=== PATIENT | female | born 1940 | race Caucasian/White ===

== ENCOUNTER 2016-12-26 09:00 | Observation (INO) ==
[2016-12-26 10:23] LABS: Basophils # 0.1 K/mcL (0.0-0.2); Basophils % 0.6 %; Eosinophils # 0.1 K/mcL (0.0-0.6); Eosinophils % 0.6 %; Hematocrit 40.4 % (35.3-44.9); Hemoglobin 13.5 g/dL (11.5-15.4); Immature Granulocytes % 0.3 % (0-4); Lymphocytes # 2.2 K/mcL (0.6-4.6); Lymphocytes % 15.2 %; Mean Corpuscular HGB Conc 33.4 g/dL (31.6-35.5); Mean Corpuscular Hemoglobin 30.3 pg (28.0-33.3); Mean Corpuscular Volume 90.6 fL (83.0-100.0); Mean Platelet Volume 9.5 fL (9.4-12.4); Monocytes # 0.8 K/mcL (0.0-1.3); Monocytes % 5.7 %; Neutrophils # 11.2 K/mcL (1.6-8.9); Platelet Count 220 K/mcL (140-400); Red Blood Count 4.46 M/mcL (3.82-4.97); Red Cell Distribution Width 12.3 % (11.5-14.5); Segmented Neutrophils % 77.6 %
[2016-12-26 10:34] LABS: BUN/Creatinine Ratio 21 (6-26); Blood Urea Nitrogen 22 mg/dL (7-20); Calcium 9.8 mg/dL (8.6-10.8); Carbon Dioxide 28 mEq/L (19-29); Chloride 102 mEq/L (98-109); Glucose 164 mg/dL (70-99); Osmolality,Calculated 297 (280-300); Potassium 3.7 mEq/L (3.5-4.5); Sodium 140 mEq/L (136-145); eGFR For African Americans > 60 (> 60); eGFR For Non-African Americans 52 (> 60)
--- NOTE | 2016-12-26 10:48 | Emergency Department Note ---
Disposition Clinical Impression: GI bleed Qualifiers: GI bleed type/associated pathology: melena Qualified Code(s): K92.1 - Melena Disposition: Admitted As Inpatient GI Bleed HPI - General Chief complaint: ED GI Bleed Stated complaint: Rectal Bleeding Time Seen by Provider: 12/26/16 09:10 Source: patient Limitations: no limitations Nursing Notes Reviewed: Yes Vital Signs Reviewed: Yes - History of Present Illness HPI Narrative: Presents with complaint of bright red rectal bleeding small quantity and this occurred intermittently this morning and started at home. Occurred a total of 3 times and does not have any dizziness. Has had some intermittent abdominal pain since last night but none at this time. This was nonlocalized. Last colonoscopy 9 years ago did have a polyp removed. She did have dark black diarrhea intermittently through the night and then the bright red blood started this morning. She denies any bruising of the skin, bleeding of the gums, blood in the urine. No dysuria or urinary frequency, vaginal bleeding or discharge. I did review the previous record. Social history: No smoking or alcohol. - Related Data Home Medications Medication Instructions Recorded Confirmed Acetaminophen [Tylenol] 1,000 mg PO Q6HR PRN 12/26/16 12/26/16 Aspirin 81 mg PO DAILY 12/26/16 12/26/16 Latanoprost [Xalatan] 1 drop BOTH EYES HS 12/26/16 12/26/16 Lisinopril/Hydrochlorothiazide 1 tab PO DAILY 12/26/16 12/26/16 [Zestoretic 10-12.5 mg Tablet] Nabumetone 750 mg PO BID 12/26/16 12/26/16 Simvastatin [Zocor] 40 mg PO HS 12/26/16 12/26/16 metFORMIN [Glucophage] 500 mg PO BID 12/26/16 12/26/16 Allergies Allergy/AdvReac Type Severity Reaction Status Date / Time ampicillin AdvReac Diarrhea Verified 12/26/16 09:04 Review of Systems: Constitutional: No fever Vision: No blurred vision ENT: No rhinorrhea Respiratory: No cough Allergic: No allergies : No blood in urine GI: + blood in stool Hematologic: No bruising Dermatologic: No skin rash Musculoskeletal: No pain in the extremities Neuro: No numbness of the extremities Past Medical History - Past Medical History Medical history: Reports: diabetes, hyperlipidemia, hypertension Psychiatric history: Reports: no psych history DIRECTOR RADIO history: Reports: bilateral tubal ligation - Social History Smoking Status: Never smoker Smokeless Tobacco Status: No Alcohol use: Reports: none Drug use: Reports: none Physical Exam CONSTITUTIONAL: Alert and oriented X3, well-nourished, well appearing, in no apparent distress HEAD: Normocephalic; atraumatic. EYES: PERRL, no scleral icterus. NOSE: The nose is normal in appearance without rhinorrhea RESP: Normal chest excursion with respiration; breath sounds clear and equal bilaterally; no wheezes, rhonchi, or rales CARD: Regular rhythm, without murmurs, rub or gallop ABD: Non-distended; non-tender, soft,without rigidity, rebound or guarding SKIN: Normal for age and race; warm and dry; no apparent lesions - General Limitations: no limitations General appearance: alert, in no apparent distress Course Vital Signs Temperature 97.4 F L 12/26/16 09:04 Pulse Rate 123 12/26/16 09:04 Respiratory Rate 17 12/26/16 09:04 Blood Pressure 133/72 12/26/16 09:04 O2 Sat by Pulse Oximetry 95 12/26/16 09:04 Temperature 98.6 F 12/26/16 15:21 Pulse Rate 95 12/26/16 15:21 Respiratory Rate 20 12/26/16 15:21 Blood Pressure 135/96 12/26/16 15:21 O2 Sat by Pulse Oximetry 94 12/26/16 15:21 Oxygen Delivery Oxygen Delivery Room Air GI Bleed - MDM Narrative Medical decision making narrative: I did review the patient's initial labs showing a normal hemoglobin. Additional labs are pending. Rectal exam and fecal Hemoccults will be performed. 1048 I did review the patient's labs and the patient is not anemic. I did speak with her and her friend again. The patient was not comfortable going home. With the episodes of 3 times of bright red rectal bleeding, bright red blood on the glove with a rectal exam, given her age the patient will be admitted to the hospital. I did speak with Dr. Levi who accepted the patient for admission. I also spoke with Dr. Le regarding colonoscopy as Dr. Zarate [place] of the country and he accepted the patient in consultation. Hemodynamically the patient is stable at this time. 1241 - Medical Records Medical records reviewed: Yes I reviewed the patient's medical records. - Lab Data Lab results reviewed: Yes I reviewed the patient's lab results. Result diagrams: 12/26/16 10:16 12/26/16 10:16 Lab Results 12/26/16 12/26/16 12/26/16 Range/Units 10:16 10:16 10:16 WBC 14.4 H (4.3-11.1) K/mcL RBC 4.46 (3.82-4.97) M/mcL Hgb 13.5 (11.5-15.4) g/dL Hct 40.4 (35.3-44.9) % MCV 90.6 (83.0-100.0) fL MCH 30.3 (28.0-33.3) pg MCHC 33.4 (31.6-35.5) g/dL RDW 12.3 (11.5-14.5) % Plt Count 220 (140-400) K/mcL MPV 9.5 (9.4-12.4) fL Immature Gran % 0.3 (0-4) % Seg Neutrophils % 77.6 % Lymphocytes % 15.2 % Monocytes % 5.7 % Eosinophils % 0.6 % Basophils % 0.6 % Neutrophils # 11.2 H (1.6-8.9) K/mcL Lymphocytes # 2.2 (0.6-4.6) K/mcL Monocytes # 0.8 (0.0-1.3) K/mcL Eosinophils # 0.1 (0.0-0.6) K/mcL Basophils # 0.1 (0.0-0.2) K/mcL PT (9.4-12.1) Seconds INR Sodium 140 (136-145) mEq/L Potassium 3.7 (3.5-4.5) mEq/L Chloride 102 (98-109) mEq/L Carbon Dioxide 28 (19-29) mEq/L BUN 22 H (7-20) mg/dL Creatinine 1.03 (0.57-1.11) mg/dL Est GFR ( Amer) > 60 (> 60) Est GFR (Non-Af Amer) 52 L (> 60) BUN/Creatinine Ratio 21 (6-26) Glucose 164 H (70-99) mg/dL Calculated Osmolality 297 (280-300) Calcium 9.8 (8.6-10.8) mg/dL Magnesium 1.6 (1.6-2.6) mg/dL Stool Occult Blood (Negative) Blood Type O POSITIVE Antibody Screen NEGATIVE 12/26/16 12/26/16 Range/Units 10:16 11:01 WBC (4.3-11.1) K/mcL RBC (3.82-4.97) M/mcL Hgb (11.5-15.4) g/dL Hct (35.3-44.9) % MCV (83.0-100.0) fL MCH (28.0-33.3) pg MCHC (31.6-35.5) g/dL RDW (11.5-14.5) % Plt Count (140-400) K/mcL MPV (9.4-12.4) fL Immature Gran % (0-4) % Seg Neutrophils % % Lymphocytes % % Monocytes % % Eosinophils % % Basophils % % Neutrophils # (1.6-8.9) K/mcL Lymphocytes # (0.6-4.6) K/mcL Monocytes # (0.0-1.3) K/mcL Eosinophils # (0.0-0.6) K/mcL Basophils # (0.0-0.2) K/mcL PT 12.5 H (9.4-12.1) Seconds INR 1.2 Sodium (136-145) mEq/L Potassium (3.5-4.5) mEq/L Chloride (98-109) mEq/L Carbon Dioxide (19-29) mEq/L BUN (7-20) mg/dL Creatinine (0.57-1.11) mg/dL Est GFR ( Amer) (> 60) Est GFR (Non-Af Amer) (> 60) BUN/Creatinine Ratio (6-26) Glucose (70-99) mg/dL Calculated Osmolality (280-300) Calcium (8.6-10.8) mg/dL Magnesium (1.6-2.6) mg/dL Stool Occult Blood Positive A (Negative) Blood Type Antibody Screen
[2016-12-26] MEDS ORDERED: *HR* Morphine 2 MG/ML SYRINGE IVP PRN (13:55)
[2016-12-26] MEDS ORDERED: Ondansetron 4 MG/2 ML VIAL IVP PRN (13:55)
[2016-12-26] MEDS ORDERED: Naloxone 0.4 MG/ML INJ IVP PRN (13:55)
[2016-12-26 14:18] LABS: Magnesium 1.6 mg/dL (1.6-2.6)
[2016-12-26 14:26] LABS: INR 1.2; Prothrombin Time 12.5 Seconds (9.4-12.1)
[2016-12-26] MEDS: 0.9 % Sodium Chloride 1,000 ML IVC SCH (14:37)
[2016-12-26] MEDS: Pantoprazole 40 MG VIAL IVP SCH (14:37)
--- NOTE | 2016-12-26 15:58 | Internal Med History&Physical ---
Date of Encounter: 12/26/16 Time of Encounter: 15:15 Assessment and Plan (1) Bright red blood per rectum Current visit: Yes Status: Acute Acute lower GI bleed, with recent melena IV Protonix, IV fluids Clear liquid diet, FOBT positive Gen. surgery consult - discussed with Dr. Coronel - colonoscopy in a.m. Hold aspirin Empiric IV Flagyl for diarrhea C. difficile pending (2) Hypertension Current visit: Yes Status: Chronic essential hypertension, controlled, continue home meds, monitor Qualifiers: Hypertension type: essential hypertension Qualified Code(s): I10 - Essential (primary) hypertension (3) Type 2 diabetes mellitus Current visit: Yes Status: Chronic Type 2 diabetes, [id number], hyperglycemia Insulin sliding scale, glucose checks Qualifiers: Diabetes mellitus complication status: without complication Diabetes mellitus custodial insulin use: without telephone appointment clerk use Qualified Code(s): E11.9 - Type 2 diabetes mellitus without complications (4) Hyperlipidemia Current visit: Yes Status: Chronic Continue statin Qualifiers: Hyperlipidemia type: unspecified Qualified Code(s): E78.5 - Hyperlipidemia , unspecified (5) DVT prophylaxis Current visit: Yes Status: Acute Continue SCDs Internal Medicine - H&P: HPI Chief complaint: Rectal bleeding Admitted From: Emergency Dept History of present illness: Ms. Kirkland is a 76 year old female with a past medical history of diabetes, hyperlipidemia, glaucoma and hypertension. She presents to the ED with complaints of bright red blood per rectum. Patient states she has had dark stool over the past month, and symptoms of gradually worsened. She states she has had intermittent diarrhea as well for the past month. Diarrhea has also been gradually worsening. She noticed bright red blood only this morning, she had a bowel movement. Patient states she had a colonoscopy about 9 years ago and had 1 polyp resected. Patient states she noticed bright red blood glucose 3 times this morning. Patient denies chest pain, denies shortness of breath, denies headache or dizziness. Denies abdominal pain or vomiting or fever. Patient denies any other obvious source of bleeding. No aggravating or alleviating factors. No other associated symptoms. On examination patient is awake and alert. Not in any distress. Able to provide history. Family members are at bedside. Initial evaluation in the ED shows the patient's H&H is stable, but she has a slightly elevated white count. No fever, her FOBT is positive. Hemodynamically stable. Patient is being admitted for lower GI bleed , will need further evaluation. I have discussed with general surgeon Dr. Coronel, he will evaluate the patient and will probably do a colonoscopy. Patient and her family members have been explained about her condition and plan of care. They understood and agreed. No unanswered questions. CODE STATUS full code. Past Med Surg Social Fam HX - Past Medical History Medical history: diabetes, glaucoma, hyperlipidemia, hypertension Psychiatric history: no psych history - Past Surgical History Surgical History: other (Surgery over neck, ear surgery and tubal ligation) - Social History Smoking Status: Never smoker Smokeless Tobacco Status: No Alcohol use: none Drug use: none Internal Medicine - H&P: Meds Acetaminophen [Tylenol] 1,000 mg PO Q6HR PRN 12/26/16 [History] Aspirin 81 mg PO DAILY 12/26/16 [History] Latanoprost [Xalatan] 1 drop BOTH EYES HS 12/26/16 [History] Lisinopril/Hydrochlorothiazide [Zestoretic 10-12.5 mg Tablet] 1 tab PO DAILY 12/07 [History] Nabumetone 750 mg PO BID 12/26/16 [History] Simvastatin [Zocor] 40 mg PO HS 12/26/16 [History] metFORMIN [Glucophage] 500 mg PO BID 12/26/16 [History] Allergies ampicillin Adverse Reaction (Verified 12/26/16 09:04) Diarrhea All Systems PM: A 10-system review of systems was performed and is negative for pertinent findings except as documented above in the HPI. - Constitutional Constitutional: as per HPI, no fatigue, no fever(s), no weakness - EENT Eyes: no blurry vision - Cardiovascular Cardiovascular ROS IM: no chest pain, no diaphoresis, no dyspnea, no dyspnea on exertion, no orthopnea, no syncope - Respiratory Respiratory: no cough, no dyspnea, no dyspnea on exertion, no wheezing, no chest congestion - Gastrointestinal Gastrointestinal: diarrhea, hematochezia, melena, no abdominal pain, no bloating , no constipation, no cramping, no nausea, no vomiting - Genitourinary Genitourinary: no dysuria - Musculoskeletal Musculoskeletal ROS IM: no arthralgias - Neurological Neurological ROS: no abnormal gait, no abnormal speech, no dizziness, no loss of vision, no numbness, no tingling - Constitutional Vitals: Temp Pulse Resp BP Pulse Ox 98.6 F 95 20 135/96 94 12/26/16 15:21 12/26/16 15:21 12/26/16 15:21 12/26/16 15:21 12/26/16 15:21 General appearance: Present: A&O X 3, pleasant, no acute distress, answers questions appropriately - Head Head exam: Present: atraumatic - Eye Eye exam: Absent: scleral icterus - ENT ENT exam: Present: mucous membranes moist - Neck Neck exam general surgery: Present: supple - Respiratory Respiratory exam: Present: CTAB. Absent: rhonchi, wheezes, tachypnea - Cardiovascular Cardiovascular exam: Present: RRR, +S1, +S2 - GI/Abdominal GI/Abdominal exam: Present: soft. Absent: distended, firm, guarding, rebound, rigid, tenderness - Extremities Exam Extremities exam: Present: radial pulses palpable and symetrical. Absent: cyanotic, pedal edema - Neurological Exam Neurological exam: Present: alert, oriented X3, no focal deficits Internal Med - H&P Results - Labs CBC & Chem 7: 12/26/16 10:16 12/26/16 10:16
[2016-12-26] MEDS: MetroNIDAZOLE 500 MG/100 ML 500 MG/100 ML BAG IVPB SCH (18:38)
--- NOTE | 2016-12-26 18:54 | General Surgery Consult Note ---
Date of Encounter: 12/26/16 Time of Encounter: 18:39 History of Present Illness Reason for consult: abdominal pain (diarrhea and new onset rectal bleeding) Requesting physician: Josse Godinez History of present illness: 76-year-old female admitted after presenting to [facility] ED with new onset bright red rectal bleeding. Several episodes occurred at home caring considerable concern and fear. The patient presented to [facility] in no acute distress hemodynamically stable; hemoglobin on presentation 13.5 with hematocrit 40.4. Patient describes diarrhea for the past month with approximately 3 pound weight loss. There was no detected blood per rectum until this morning. She denies any fevers, chills , nausea, vomiting, or rectal pain. During this encounter with the patient and patient incidentally mentioned melena intermittently over the past month. Past medical history: Diabetes, hyperlipidemia, hypertension Surgical history: Tubal, removal of a mass or growth from the thyroid; reconstruction of the right tympanic membrane; colonoscopy was completed 9 years ago Allergies: Ampicillin Medications: Lisinopril hydrochlorothiazide 10/12.5 mg 1 by mouth daily Metformin 500 mg 1 by mouth twice a day Simvastatin 40 mg by mouth daily at bedtime Tylenol 500 mg 2 tabs every 6 hours as needed Aspirin 81 mg 1 by mouth daily Nabumetone 750 mg by mouth twice a day (not listed by patient) latanoprost ophthalmic 0.005% one drop both eyes daily at bedtime Social history: Patient has never smoked; she does not consume alcohol or use illicit drugs Physical examination: Pleasant, age-appropriate female resting comfortably in her hospital bed. She is in no acute distress. The patient has been afebrile, 98.6; pulse 95, respirations 1620; blood pressure 135/96 but earlier today 115/70. SPO2 on room air 94% Skin: Warm without obvious jaundice Lungs: Clear, no appreciable wheezes or rales. No abdominal pain with deep inspiration Cardiac: Regular rate, no appreciable murmurs Abdomen: Soft, nontender; no detected intra-abdominal masses, hepatosplenomegaly or fullness. Active bowel sounds. Rectal: Deferred to time of colonoscopy Extremities, no obvious clubbing, cyanosis, or edema Laboratories: Obtained on presentation to the emergency department - white count 14.4; hemoglobin 13.5, hematocrit 40.4; platelet count 220,000 Differential notable for neutrophils 11.2%. PT 12.5, INR 1.2 Electrolytes within normal limits, BUN 22, creatinine 1.03; estimated GFR 52 Impression: 76-year-old female admitted after presenting to [facility] ED with new onset bright red rectal bleeding. Surgical consultation placed for colonoscopy. This will be arranged in the a.m. The procedure has been discussed in detail. Risks including hemorrhage, infection, cramping abdominal pain, bloating, and perforation. A mechanical bowel prep was also discussed in detail. Past Med Surg Social Fam HX - Past Medical History Medical history: diabetes, glaucoma, hyperlipidemia, hypertension Psychiatric history: no psych history - Past Surgical History Surgical History: other (Surgery over neck, ear surgery and tubal ligation) - Social History Smoking Status: Never smoker Smokeless Tobacco Status: No Alcohol use: none Drug use: none Medications and Allergies Acetaminophen [Tylenol] 1,000 mg PO Q6HR PRN 12/26/16 [History] Aspirin 81 mg PO DAILY 12/26/16 [History] Latanoprost [Xalatan] 1 drop BOTH EYES HS 12/26/16 [History] Lisinopril/Hydrochlorothiazide [Zestoretic 10-12.5 mg Tablet] 1 tab PO DAILY 12/07 [History] Nabumetone 750 mg PO BID 12/26/16 [History] Simvastatin [Zocor] 40 mg PO HS 12/26/16 [History] metFORMIN [Glucophage] 500 mg PO BID 12/26/16 [History] Allergies ampicillin Adverse Reaction (Verified 12/26/16 09:04) Diarrhea Review of Systems All systems PM: A 10-system review of systems was performed and is negative for pertinent findings except as documented above in the HPI. General Surgery Exam Initial Vital Signs Temp Pulse Resp BP Pulse Ox 97.4 F L 123 17 133/72 95 12/26/16 09:04 12/26/16 09:04 12/26/16 09:04 12/26/16 09:04 12/26/16 09:04 Exam Initial Vital Signs Temp Pulse Resp BP Pulse Ox 97.4 F L 123 17 133/72 95 12/26/16 09:04 12/26/16 09:04 12/26/16 09:04 12/26/16 09:04 12/26/16 09:04 Results - Labs 12/26/16 10:16 12/26/16 10:16 Abnormal lab results WBC 14.4 K/mcL (4.3-11.1) H 12/26/16 10:16 Neutrophils # 11.2 K/mcL (1.6-8.9) H 12/26/16 10:16 PT 12.5 Seconds (9.4-12.1) H 12/26/16 10:16 BUN 22 mg/dL (7-20) H 12/26/16 10:16 Est GFR (Non-Af Amer) 52 (> 60) L 12/26/16 10:16 Glucose 164 mg/dL (70-99) H 12/26/16 10:16 POC Glucose 122 (58-89) H 12/26/16 16:40 Stool Occult Blood Positive (Negative) A 12/26/16 11:01 All other labs normal. Consult Discharge Plan - Plan Referrals: Sage Albert DO [Primary Care Provider] -
[2016-12-26 20:12] LABS: Bilirubin,Urine Negative (Negative); Blood,Urine Moderate (Negative); Clarity,Urine Clear (Clear); Color,Urine Yellow (Yellow); Glucose,Urine (UA) Normal (Normal); Ketones,Urine Negative (Negative); Leukocyte Esterase,Urine Moderate (Negative); Nitrite,Urine Negative (Negative); PH,Urine 5.5 pH Units (5.0-8.0); Protein,Urine Negative (Neg-Trace); Specific Gravity,Urine 1.012 (1.010-1.025); Urobilinogen,Urine Normal (Normal)
[2016-12-26 20:15] LABS: Bacteria,Urine Few per hpf (None-Few); Hyaline Casts,Urine None Seen per lpf (None-Few); Squamous Epithelial Cell,Urine Many per lpf (None-Few)
[2016-12-26] MEDS: Latanoprost 2.5 ML BOTTLE BOTH EYES SCH (20:54)
[2016-12-26] MEDS ORDERED: Polyethylene Glycol 3350 255 GM POWDER PO ONE (21:57)
[2016-12-27] MEDS: MetroNIDAZOLE 500 MG/100 ML 500 MG/100 ML BAG IVPB SCH ×3 (00:45→16:33)
[2016-12-27 03:35] LABS: Basophils # 0.1 K/mcL (0.0-0.2); Basophils % 0.5 %; Eosinophils # 0.2 K/mcL (0.0-0.6); Eosinophils % 1.2 %; Hematocrit 37.2 % (35.3-44.9); Hemoglobin 12.5 g/dL (11.5-15.4); Immature Granulocytes % 0.3 % (0-4); Lymphocytes # 2.1 K/mcL (0.6-4.6); Lymphocytes % 14.5 %; Mean Corpuscular HGB Conc 33.6 g/dL (31.6-35.5); Mean Corpuscular Hemoglobin 31.3 pg (28.0-33.3); Mean Platelet Volume 10.2 fL (9.4-12.4); Monocytes # 0.9 K/mcL (0.0-1.3); Monocytes % 6.4 %; Neutrophils # 11.1 K/mcL (1.6-8.9); Platelet Count 217 K/mcL (140-400); Red Cell Distribution Width 12.5 % (11.5-14.5); Segmented Neutrophils % 77.1 %
[2016-12-27 03:48] LABS: BUN/Creatinine Ratio 18 (6-26); Blood Urea Nitrogen 16 mg/dL (7-20); Calcium 8.9 mg/dL (8.6-10.8); Carbon Dioxide 26 mEq/L (19-29); Chloride 102 mEq/L (98-109); Glucose 167 mg/dL (70-99); Osmolality,Calculated 291 (280-300); Potassium 3.4 mEq/L (3.5-4.5); Sodium 138 mEq/L (136-145); eGFR For African Americans > 60 (> 60); eGFR For Non-African Americans > 60 (> 60)
[2016-12-27] MEDS: Pantoprazole 40 MG VIAL IVP SCH (08:38)
--- NOTE | 2016-12-27 11:34 | Pre-Sedation Evaluation ---
Pre-sedation evaluation - Pre-sedation checklist Date of procedure: 12/27/16 Procedure: colonoscopy Recent Vitals: Last Vital Signs Temp 98.1 F 12/27/16 07:28 Pulse 80 12/27/16 07:28 Resp 16 12/27/16 07:28 BP 94/51 12/27/16 07:28 Pulse Ox 93 12/27/16 07:28 H&P (including ROS) documented in medical record: Yes Previous reaction to sedatives/anesthetics: No Dietary Status: No solid food in preceding 4 hrs and no liquid in preceding 2 hrs Airway Assessment: Patient can open mouth completely, TMJ function normal, Micrognathia (under-bite, receding chin) absent, Neck with adequate range of motion Dentition: No loose teeth or bridges Possible difficult airway: No ASA Classification *see protocol: CLASS II-Mild systemic disease Plan of Care: Pt appropriate candidate for procedure/moderate/conscious sedation , Risks/benefits of procedure/sedation discussed w/ patient/family, If not NPO; Risk of intake outweiged by necessity to perform procedure
[2016-12-27] MEDS ORDERED: *HR* FentaNYL (PF) 100 MCG/2 ML VIAL IVP PRN (11:35)
[2016-12-27] MEDS ORDERED: Simethicone 40 MG/0.6 ML MLS IR ONE (11:35)
[2016-12-27] MEDS ORDERED: *HR* Midazolam HCl 5 MG/5 ML VIAL IVP PRN (11:35)
[2016-12-27] MEDS ORDERED: Tetracaine/Benzocaine/Butamben 200MG/SPRAY (100SPY/BOT) MM ONE (11:35)
[2016-12-27] MEDS ORDERED: *HR* Midazolam HCl 5 MG/5 ML VIAL IVP ONE (11:37)
[2016-12-27] MEDS ORDERED: *HR* FentaNYL (PF) 100 MCG/2 ML VIAL ONE (11:37)
[2016-12-27] MEDS: 0.9 % Sodium Chloride 1,000 ML IVC SCH (12:27)
[2016-12-27] MEDS ORDERED: Potassium Chloride Elixir 20 MEQ/15 ML UDC PO ONE (15:36)
--- NOTE | 2016-12-27 15:40 | Internal Med Progress Note ---
Date of Encounter: 12/27/16 Time of Encounter: 15:38 - Assessment and plan (1) UTI (urinary tract infection) Current Visit: Yes Status: Acute Qualifiers: Qualified Code(s): N39.0 - Urinary tract infection, site not specified (2) Hypokalemia Current Visit: Yes Status: Acute (3) Type 2 diabetes mellitus Current Visit: Yes Status: Chronic Qualifiers: Diabetes mellitus complication status: without complication Diabetes mellitus correction insulin use: without correction use Qualified Code(s): E11.9 - Type 2 diabetes mellitus without complications (4) Hyperlipidemia Current Visit: Yes Status: Chronic Qualifiers: Hyperlipidemia type: unspecified Qualified Code(s): E78.5 - Hyperlipidemia , unspecified (5) GI bleed Current Visit: Yes Status: Acute Qualifiers: GI bleed type/associated pathology: melena Qualified Code(s): K92.1 - Melena - Subjective Interval history: Mrs. Diana Kirkland is a 76-year-old female presented with a painless lower rectal bleed with bright red blood along with multiple loose episodes and wake lower abdomen discomfort. UA showed positive leukocytes. She is admitted for rectal bleed and UTI. I have ordered H&H CBC and CMP follow-ups. Her potassium is low perhaps due to diarrhea therefore I will add some potassium. Her bleeding has not stopped and she had only 2 loose bowel movement this morning. She is planned to go for colonoscopy this evening. - Constitutional Vitals: Temp Pulse Resp BP Pulse Ox 98.1 F 99 18 148/88 95 12/27/16 07:28 12/27/16 12:11 12/27/16 12:11 12/27/16 12:11 12/27/16 12:11 General appearance: Present: A&O X 3, pleasant, no acute distress, answers questions appropriately - Head Head exam: Present: atraumatic, normocephalic - Eye Eye exam: Present: PERRL, conjuntiva pink, sclera anicteric Pupils: Present: PERRL - Neck Neck exam general surgery: Present: supple, trachea midline. Absent: lymphadenopathy - Respiratory Respiratory exam: Present: CTAB. Absent: accessory muscle use, rales, rhonchi, wheezes - Cardiovascular Cardiovascular exam: Present: RRR, +S1, +S2. Absent: diastolic murmur, gallop, rubs, systolic murmur - GI/Abdominal GI/Abdominal exam: Present: normal bowel sounds, soft, no peritoneal signs. Absent: distended, tenderness - Extremities Exam Extremities exam: Present: warm, radial pulses palpable and symetrical. Absent : calf tenderness, cyanotic, pedal edema - Neurological Exam Neurological exam: Present: CN II-XII intact, oriented X3, no focal deficits. Absent: pronater drift, facial droop, speech deficit - Skin Skin exam: Present: dry, intact Internal Medicine: Result - Labs CBC & Chem 7: 12/27/16 02:46 12/27/16 02:46 Labs: Short CBC 12/27/16 Range/Units 02:46 WBC 14.5 H (4.3-11.1) K/mcL Hgb 12.5 (11.5-15.4) g/dL Hct 37.2 (35.3-44.9) % Plt Count 217 (140-400) K/mcL Neutrophils # 11.1 H (1.6-8.9) K/mcL BMP 12/27/16 02:46 Sodium 138 Potassium 3.4 L Chloride 102 Carbon Dioxide 26 BUN 16 Creatinine 0.91 Glucose 167 H Calcium 8.9 Urine 12/26/16 Range/Units 20:01 Urine Color Yellow (Yellow) Urine Clarity Clear (Clear) Urine pH 5.5 (5.0-8.0) pH Units Ur Specific [place] 1.012 (1.010-1.025) Urine Protein Negative (Neg-Trace) mg/dL Urine Glucose (UA) Normal (Normal) mg/dL - ABG Interpretation ABG results: PT/INR, D-dimer PT 12.5 Seconds (9.4-12.1) H 12/26/16 10:16 - Impressions Impressions Abdomen/Pelvis CT 12/27/16 15:00 IMPRESSION: 1. Diffuse circumferential wall thickening of the descending colon suggesting an acute infectious or inflammatory colitis. No evidence of bowel perforation or obstruction. 2. Abnormal endometrial thickening of uncertain etiology. Given patient's age, follow-up nonemergent ultrasound of the pelvis is recommended for further evaluation as malignancy cannot be excluded. D/ / Wade Barbosa MD / Wade Barbosa MD Interpreting Provider: Wade Barbosa MD Consult Discharge Plan - Plan Referrals: Sage Albert DO [Primary Care Provider] - 01/02/17 9:30 am
[2016-12-27 17:16] LABS: Hematocrit 36.6 % (35.3-44.9); Hemoglobin 12.2 g/dL (11.5-15.4)
[2016-12-27] MEDS: Latanoprost 2.5 ML BOTTLE BOTH EYES SCH (20:37)
[2016-12-27 21:46] LABS: Hemoglobin 11.4 g/dL (11.5-15.4)
[2016-12-28] MEDS: MetroNIDAZOLE 500 MG/100 ML 500 MG/100 ML BAG IVPB SCH ×3 (00:19→18:50)
[2016-12-28 04:02] LABS: Basophils # 0.1 K/mcL (0.0-0.2); Basophils % 0.8 %; Eosinophils # 0.4 K/mcL (0.0-0.6); Eosinophils % 4.1 %; Hematocrit 33.5 % (35.3-44.9); Immature Granulocytes % 0.3 % (0-4); Lymphocytes # 3.1 K/mcL (0.6-4.6); Lymphocytes % 29.3 %; Mean Corpuscular HGB Conc 32.8 g/dL (31.6-35.5); Mean Corpuscular Hemoglobin 30.6 pg (28.0-33.3); Mean Corpuscular Volume 93.1 fL (83.0-100.0); Monocytes # 0.7 K/mcL (0.0-1.3); Monocytes % 6.3 %; Neutrophils # 6.3 K/mcL (1.6-8.9); Platelet Count 189 K/mcL (140-400); Red Cell Distribution Width 12.8 % (11.5-14.5); Segmented Neutrophils % 59.2 %
[2016-12-28 04:15] LABS: Alanine Aminotransferase 22 Units/L (0-55); Albumin/Globulin Ratio 1.1 (1.1-2.2); Alkaline Phosphatase 42 Units/L (38-126); Aspartate Amino Transferase 22 Units/L (5-34); BUN/Creatinine Ratio 13 (6-26); Bilirubin,Total 0.5 mg/dL (0.2-1.2); Blood Urea Nitrogen 12 mg/dL (7-20); Calcium 8.1 mg/dL (8.6-10.8); Carbon Dioxide 25 mEq/L (19-29); Chloride 108 mEq/L (98-109); Globulin 2.8 g/dL (2.4-3.5); Glucose 119 mg/dL (70-99); Osmolality,Calculated 291 (280-300); Potassium 3.8 mEq/L (3.5-4.5); Sodium 140 mEq/L (136-145); Total Protein 5.8 g/dL (6.0-8.3); eGFR For African Americans > 60 (> 60); eGFR For Non-African Americans 58 (> 60)
[2016-12-28] MEDS: Pantoprazole 40 MG VIAL IVP SCH (08:51)
--- NOTE | 2016-12-28 08:59 | General Surgery Progress Note ---
Date of Encounter: 12/28/16 Time of Encounter: 08:45 Subjective Patient reports: no new complaints, feels better Narrative: General Surgery: Patient doing well, voicing no complaints. Denies any abdominal pain, nausea and vomiting. The patient tolerated the colonoscopy well and has no post procedure complaints. Biopsy results still pending Afebrile, currently 98.4; pulse 83, respirations 17, blood pressure 111/73. Lungs: Clear Abdomen: Soft, nontender. With the degree of colitis encountered at the time of colonoscopy it is surprising that the patient has demonstrated no abdominal tenderness. Laboratories: Leukocytosis resolved to 10.6; hemoglobin essentially stable at 11.0 with hematocrit 33.5. Differential shows resolution of the neutrophils - current differential is within normal limits. Impression: colitis descending and sigmoid colon. Pathological evaluation of endoscopic biopsies pending. Patient and family are aware of the colonoscopic findings. No noted recent history ATB administration. Recommendation: continue IV ATB for now. if remains stable, with no recurrent symptoms (such as rectal bleeding or abdominal pain) may consider discharge home on oral ATB in the AM. Objective Vital Signs - Last 8 Hours Temp Pulse Resp BP Pulse Ox 12/28/16 07:16 98.4 F 83 17 111/73 95 12/28/16 04:00 98.2 F 83 18 107/57 95 Intake and Output 12/27/16 12/28/16 12/28/16 23:59 07:59 15:59 Intake Total 300 / 300 250 / 250 Output Total 1 / 1 Balance 299 / 299 250 / 250 Intake: IV Fluids 300 / 300 100 / 100 Cipro Premix 400 MG/200 200 / 200 ML 400 mg In 200 ml @ 200 mls/hr IVPB Q12HR [facility] Rx #:[id number] Flagyl Premix 500 MG/100 100 / 100 100 / 100 ML 500 mg In 100 ml @ 100 mls/hr IVPB Q8HR [facility] Rx# :[id number] Oral 0 / 0 Free Water 150 / 150 Output: Urine 1 / Other: Meal Dinner Percent of Meal Consumed 95% Stool Size Smear Stool Consistency loose Stool Color Brown # Voids 1 1 Weight 84.6 kg Blood Glucose* 108 146 Patient Weight 12/28/16 23:59 Weight 84.6 kg - Labs 12/28/16 03:39 12/28/16 03:39 Diabetes panel 12/28/16 Range/Units 03:39 Sodium 140 (136-145) mEq/L Potassium 3.8 (3.5-4.5) mEq/L Chloride 108 (98-109) mEq/L Carbon Dioxide 25 (19-29) mEq/L BUN 12 (7-20) mg/dL Creatinine 0.95 (0.57-1.11) mg/dL Glucose 119 H (70-99) mg/dL Calcium 8.1 L (8.6-10.8) mg/dL AST 22 (5-34) Units/L ALT 22 (0-55) Units/L Alkaline Phosphatase 42 (38-126) Units/L Albumin 3.0 L (3.5-5.0) g/dL Calcium panel 12/28/16 Range/Units 03:39 Calcium 8.1 L (8.6-10.8) mg/dL Albumin 3.0 L (3.5-5.0) g/dL Pituitary panel 12/28/16 Range/Units 03:39 Sodium 140 (136-145) mEq/L Potassium 3.8 (3.5-4.5) mEq/L Chloride 108 (98-109) mEq/L Carbon Dioxide 25 (19-29) mEq/L BUN 12 (7-20) mg/dL Creatinine 0.95 (0.57-1.11) mg/dL Glucose 119 H (70-99) mg/dL Calcium 8.1 L (8.6-10.8) mg/dL Adrenal panel 12/28/16 Range/Units 03:39 Sodium 140 (136-145) mEq/L Potassium 3.8 (3.5-4.5) mEq/L Chloride 108 (98-109) mEq/L Carbon Dioxide 25 (19-29) mEq/L BUN 12 (7-20) mg/dL Creatinine 0.95 (0.57-1.11) mg/dL Glucose 119 H (70-99) mg/dL Calcium 8.1 L (8.6-10.8) mg/dL Total Bilirubin 0.5 (0.2-1.2) mg/dL AST 22 (5-34) Units/L ALT 22 (0-55) Units/L Alkaline Phosphatase 42 (38-126) Units/L Albumin 3.0 L (3.5-5.0) g/dL - VTE Documentation of Mechanical Device: Intermittent pneumatic compression device Consult Discharge Plan - Plan Referrals: Sage Albert DO [Primary Care Provider] - 01/02/17 9:30 am
[2016-12-28 09:49] LABS: Hematocrit 36.7 % (35.3-44.9); Hemoglobin 12.2 g/dL (11.5-15.4)
[2016-12-28] MEDS: Acetaminophen 325 MG TABLET PO PRN (13:26)
--- NOTE | 2016-12-28 15:10 | Internal Med Progress Note ---
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 Diana Kirkland is a 76-year-old female presented with a painless lower rectal bleed with bright red blood along with multiple loose episodes and wake lower abdomen discomfort. UA showed positive leukocytes. She is admitted for rectal bleed and UTI. I have ordered H&H CBC and CMP follow-ups. Her potassium is low perhaps due to diarrhea therefore I will add some potassium. Her bleeding has not stopped and she had only 2 loose bowel movement this morning. She is planned to go for colonoscopy this evening. 12/28 patient seems quite comfortable. Yesterday after colonoscopy and biopsy she threw some clots. She was noted to have descending colon and sigmoid colitis though amazingly she is asymptomatic and white count is normal. She is on Cipro and Flagyl and I will increase IV fluid 225 mL an hour. Potassium is 3.8 and will monitor it. - Constitutional Vitals: Temp Pulse Resp BP Pulse Ox 98.0 F 83 16 125/71 95 12/28/16 11:11 12/28/16 11:11 12/28/16 11:11 12/28/16 11:11 12/28/16 11:11 General appearance: Present: A&O X 3, pleasant, no acute distress, answers questions appropriately - Head Head exam: Present: atraumatic, normocephalic - Eye Eye exam: Present: PERRL, conjuntiva pink, sclera anicteric Pupils: Present: PERRL - Neck Neck exam general surgery: Present: supple, trachea midline. Absent: lymphadenopathy - Respiratory Respiratory exam: Present: CTAB. Absent: accessory muscle use, rales, rhonchi, wheezes - Cardiovascular Cardiovascular exam: Present: RRR, +S1, +S2. Absent: diastolic murmur, gallop, rubs, systolic murmur - GI/Abdominal GI/Abdominal exam: Present: normal bowel sounds, soft, no peritoneal signs. Absent: distended, tenderness - Extremities Exam Extremities exam: Present: warm, radial pulses palpable and symetrical. Absent : calf tenderness, cyanotic, pedal edema - Neurological Exam Neurological exam: Present: CN II-XII intact, oriented X3, no focal deficits. Absent: pronater drift, facial droop, speech deficit - Skin Skin exam: Present: dry, intact Internal Medicine: Result - Labs CBC & Chem 7: 12/28/16 09:21 12/28/16 03:39 Labs: Short CBC 12/27/16 12/27/16 12/28/16 Range/Units 16:56 21:38 03:39 WBC 10.6 (4.3-11.1) K/mcL Hgb 12.2 11.4 L 11.0 L (11.5-15.4) g/dL Hct 36.6 34.0 L 33.5 L (35.3-44.9) % Plt Count 189 (140-400) K/mcL Neutrophils # 6.3 (1.6-8.9) K/mcL 12/28/16 Range/Units 09:21 WBC (4.3-11.1) K/mcL Hgb 12.2 (11.5-15.4) g/dL Hct 36.7 (35.3-44.9) % Plt Count (140-400) K/mcL Neutrophils # (1.6-8.9) K/mcL BMP 12/28/16 03:39 Sodium 140 Potassium 3.8 Chloride 108 Carbon Dioxide 25 BUN 12 Creatinine 0.95 Glucose 119 H Calcium 8.1 L Liver Function 12/28/16 Range/Units 03:39 Total Bilirubin 0.5 (0.2-1.2) mg/dL AST 22 (5-34) Units/L ALT 22 (0-55) Units/L Alkaline Phosphatase 42 (38-126) Units/L Albumin 3.0 L (3.5-5.0) g/dL - ABG Interpretation ABG results: PT/INR, D-dimer PT 12.5 Seconds (9.4-12.1) H 12/26/16 10:16 - Impressions Impressions Abdomen/Pelvis CT 12/27/16 15:00 IMPRESSION: 1. Diffuse circumferential wall thickening of the descending colon suggesting an acute infectious or inflammatory colitis. No evidence of bowel perforation or obstruction. 2. Abnormal endometrial thickening of uncertain etiology. Given patient's age, follow-up nonemergent ultrasound of the pelvis is recommended for further evaluation as malignancy cannot be excluded. D/ / Wade Barbosa MD / Wade Barbosa MD Interpreting Provider: Wade Barbosa MD - VTE Documentation of Mechanical Device: Intermittent pneumatic compression device Consult Discharge Plan - Plan Referrals: Sage Albert DO [Primary Care Provider] - 01/02/17 9:30 am
[2016-12-28 17:02] LABS: Hemoglobin 11.2 g/dL (11.5-15.4)
[2016-12-28] MEDS: Latanoprost 2.5 ML BOTTLE BOTH EYES SCH (21:35)
[2016-12-28 21:38] LABS: Hematocrit 32.9 % (35.3-44.9); Hemoglobin 10.7 g/dL (11.5-15.4)
[2016-12-28] MEDS ORDERED: Acetaminophen 325 MG TABLET PO ONE (21:50)
[2016-12-29] MEDS: 0.9 % Sodium Chloride 1,000 ML IVC SCH (01:00)
[2016-12-29] MEDS: MetroNIDAZOLE 500 MG/100 ML 500 MG/100 ML BAG IVPB SCH ×3 (01:05→17:29)
[2016-12-29 04:48] LABS: Basophils # 0.1 K/mcL (0.0-0.2); Basophils % 0.9 %; Eosinophils # 0.5 K/mcL (0.0-0.6); Eosinophils % 5.4 %; Hematocrit 33.3 % (35.3-44.9); Immature Granulocytes % 0.3 % (0-4); Lymphocytes # 3.2 K/mcL (0.6-4.6); Lymphocytes % 35.3 %; Mean Corpuscular Hemoglobin 30.7 pg (28.0-33.3); Mean Platelet Volume 10.4 fL (9.4-12.4); Monocytes # 0.6 K/mcL (0.0-1.3); Monocytes % 6.9 %; Neutrophils # 4.6 K/mcL (1.6-8.9); Platelet Count 197 K/mcL (140-400); Red Blood Count 3.58 M/mcL (3.82-4.97); Red Cell Distribution Width 12.7 % (11.5-14.5); Segmented Neutrophils % 51.2 %
[2016-12-29 05:03] LABS: Alanine Aminotransferase 22 Units/L (0-55); Alkaline Phosphatase 45 Units/L (38-126); Aspartate Amino Transferase 25 Units/L (5-34); BUN/Creatinine Ratio 16 (6-26); Bilirubin,Total 0.3 mg/dL (0.2-1.2); Blood Urea Nitrogen 14 mg/dL (7-20); Calcium 7.8 mg/dL (8.6-10.8); Carbon Dioxide 27 mEq/L (19-29); Chloride 111 mEq/L (98-109); Globulin 2.9 g/dL (2.4-3.5); Glucose 114 mg/dL (70-99); Osmolality,Calculated 297 (280-300); Potassium 3.4 mEq/L (3.5-4.5); Sodium 143 mEq/L (136-145); Total Protein 5.9 g/dL (6.0-8.3); eGFR For African Americans > 60 (> 60); eGFR For Non-African Americans > 60 (> 60)
[2016-12-29] MEDS: Pantoprazole 40 MG VIAL IVP SCH (07:46)
--- NOTE | 2016-12-29 09:14 | General Surgery Progress Note ---
Date of Encounter: 12/29/16 Time of Encounter: 08:45 Subjective Narrative: General Surgery: Post endoscopy day #2 Patient had transient right lower quadrant abdominal pain through the night, currently not present Afebrile, currently 98.2; pulse 86, respirations 16, blood pressure 120/77. Abdomen: Soft, nontender; tolerating diet; no nausea vomiting. Active bowel sounds. Patient is still passing some loose stool most likely related to the mechanical bowel prep and the colitis encountered at the time of endoscopy. Pathology: Biopsy results still pending Laboratories: White count 8.9, hemoglobin stable 11.0, hematocrit 33.3. Potassium has decreased to 3.4, Chloride 111; other electrolytes, BUN, Cr - WNL Pelvic ultrasound: Patient questioning as to why one was completed; family CT scan showed endometrial thickening. The ultrasound shows normal myometrial echotexture; thickened endometrial echo complex with small round hypoechoic areas possibly representing cystic changes. These heterogenous changes in this age group are not normal. Underlying endometrial mass cannot be excluded. Impression: Colitis involving the sigmoid and descending colon; pathology/ endoscopic biopsies pending Recurrent hypokalemia Rectal bleeding, mild anemia - related to the colitis identified during colonoscopy Heterogenous thickening endometrial stripe Recommendations: Continue Cipro and Flagyl, may consider converting to oral Potassium supplementation as appropriate Gynecologic follow-up as an outpatient Objective Vital Signs - Last 8 Hours Temp Pulse Resp BP Pulse Ox 12/29/16 07:21 98.2 F 86 16 128/77 95 12/29/16 03:41 97.8 F 83 16 105/62 96 Intake and Output 12/28/16 12/29/16 12/29/16 23:59 07:59 15:59 Intake Total 340 / 340 300 / 300 Output Total 400 / 400 Balance 340 / 340 -100 / -100 Intake: IV Fluids 100 / 100 300 / 300 Cipro Premix 400 MG/200 200 / 200 ML 400 mg In 200 ml @ 200 mls/hr IVPB Q12HR [facility] Rx #:[id number] Flagyl Premix 500 MG/100 100 / 100 100 / 100 ML 500 mg In 100 ml @ 100 mls/hr IVPB Q8HR [facility] Rx# :[id number] Oral 240 / 240 Output: Urine 400 / 400 Other: Meal Dinner Percent of Meal Consumed 100% Stool Size Small Stool Consistency loose Stool Characteristics Mucoid Stool Color Brown Blood Tinged # Bowel Movements 1 Weight 83.915 kg Blood Glucose* 165 162 Patient Weight 12/29/16 23:59 Weight 83.915 kg - Labs 12/29/16 03:56 12/29/16 03:56 Diabetes panel 12/29/16 Range/Units 03:56 Sodium 143 (136-145) mEq/L Potassium 3.4 L (3.5-4.5) mEq/L Chloride 111 H (98-109) mEq/L Carbon Dioxide 27 (19-29) mEq/L BUN 14 (7-20) mg/dL Creatinine 0.87 (0.57-1.11) mg/dL Glucose 114 H (70-99) mg/dL Calcium 7.8 L (8.6-10.8) mg/dL AST 25 (5-34) Units/L ALT 22 (0-55) Units/L Alkaline Phosphatase 45 (38-126) Units/L Albumin 3.0 L (3.5-5.0) g/dL Calcium panel 12/29/16 Range/Units 03:56 Calcium 7.8 L (8.6-10.8) mg/dL Albumin 3.0 L (3.5-5.0) g/dL Pituitary panel 12/29/16 Range/Units 03:56 Sodium 143 (136-145) mEq/L Potassium 3.4 L (3.5-4.5) mEq/L Chloride 111 H (98-109) mEq/L Carbon Dioxide 27 (19-29) mEq/L BUN 14 (7-20) mg/dL Creatinine 0.87 (0.57-1.11) mg/dL Glucose 114 H (70-99) mg/dL Calcium 7.8 L (8.6-10.8) mg/dL Adrenal panel 12/29/16 Range/Units 03:56 Sodium 143 (136-145) mEq/L Potassium 3.4 L (3.5-4.5) mEq/L Chloride 111 H (98-109) mEq/L Carbon Dioxide 27 (19-29) mEq/L BUN 14 (7-20) mg/dL Creatinine 0.87 (0.57-1.11) mg/dL Glucose 114 H (70-99) mg/dL Calcium 7.8 L (8.6-10.8) mg/dL Total Bilirubin 0.3 (0.2-1.2) mg/dL AST 25 (5-34) Units/L ALT 22 (0-55) Units/L Alkaline Phosphatase 45 (38-126) Units/L Albumin 3.0 L (3.5-5.0) g/dL - VTE Documentation of Mechanical Device: Intermittent pneumatic compression device Consult Discharge Plan - Plan Referrals: Sage Albert DO [Primary Care Provider] - 01/02/17 9:30 am
[2016-12-29 10:04] LABS: Hematocrit 36.2 % (35.3-44.9); Hemoglobin 12.1 g/dL (11.5-15.4)
[2016-12-29] MEDS ORDERED: Potassium Chloride Elixir 20 MEQ/15 ML UDC PO ONE (12:38)
--- NOTE | 2016-12-29 12:41 | Internal Med Progress Note ---
Date of Encounter: 12/29/16 Time of Encounter: 12:39 - Assessment and plan (1) UTI (urinary tract infection) Current Visit: Yes Status: Acute Qualifiers: Qualified Code(s): N39.0 - Urinary tract infection, site not specified (2) Hypokalemia Current Visit: Yes Status: Acute (3) Type 2 diabetes mellitus Current Visit: Yes Status: Chronic Qualifiers: Diabetes mellitus complication status: without complication Diabetes mellitus chcf insulin use: without [facility] use Qualified Code(s): E11.9 - Type 2 diabetes mellitus without complications (4) Hyperlipidemia Current Visit: Yes Status: Chronic Qualifiers: Hyperlipidemia type: unspecified Qualified Code(s): E78.5 - Hyperlipidemia , unspecified (5) GI bleed Current Visit: Yes Status: Acute Qualifiers: GI bleed type/associated pathology: melena Qualified Code(s): K92.1 - Melena (6) Colitis Current Visit: Yes Status: Acute - Subjective Interval history: Mrs. Diana Kirkland is a 76-year-old female presented with a painless lower rectal bleed with bright red blood along with multiple loose episodes and wake lower abdomen discomfort. UA showed positive leukocytes. She is admitted for rectal bleed and UTI. I have ordered H&H CBC and CMP follow-ups. Her potassium is low perhaps due to diarrhea therefore I will add some potassium. Her bleeding has not stopped and she had only 2 loose bowel movement this morning. She is planned to go for colonoscopy this evening. 12/28 patient seems quite comfortable. Yesterday after colonoscopy and biopsy she threw some clots. She was noted to have descending colon and sigmoid colitis though amazingly she is asymptomatic and white count is normal. She is on Cipro and Flagyl and I will increase IV fluid 225 mL an hour. Potassium is 3.8 and will monitor it. 12/29 patient is ambulating in no distress. Hemoglobin is stable. She passed some blood clot which are brownish in color and sounds like they are old clots due to bowel prep clear. Patient has UTI but no symptoms he is on antibiotics now. Does not was low and supplemented. Ultrasound pelvis showed heterogeneous endometrial wall thickening. Surgical opinion noted. FLIGHT HOSTESS will be consulted to rule out malignancy. Pelvic ultrasound was done after radial largest remark on CT scan report and patient's request - Constitutional Vitals: Temp Pulse Resp BP Pulse Ox 98.2 F 86 16 128/77 95 12/29/16 07:21 12/29/16 07:21 12/29/16 07:21 12/29/16 07:21 12/29/16 07:21 General appearance: Present: A&O X 3, pleasant, no acute distress, answers questions appropriately - Head Head exam: Present: atraumatic, normocephalic - Eye Eye exam: Present: PERRL, conjuntiva pink, sclera anicteric Pupils: Present: PERRL - Neck Neck exam general surgery: Present: supple, trachea midline. Absent: lymphadenopathy - Respiratory Respiratory exam: Present: CTAB. Absent: accessory muscle use, rales, rhonchi, wheezes - Cardiovascular Cardiovascular exam: Present: RRR, +S1, +S2. Absent: diastolic murmur, gallop, rubs, systolic murmur - GI/Abdominal GI/Abdominal exam: Present: normal bowel sounds, soft, no peritoneal signs. Absent: distended, tenderness - Extremities Exam Extremities exam: Present: warm, radial pulses palpable and symetrical. Absent : calf tenderness, cyanotic, pedal edema - Neurological Exam Neurological exam: Present: CN II-XII intact, oriented X3, no focal deficits. Absent: pronater drift, facial droop, speech deficit - Skin Skin exam: Present: dry, intact Internal Medicine: Result - Labs CBC & Chem 7: 12/29/16 09:43 12/29/16 03:56 Labs: Short CBC 12/28/16 12/28/16 12/29/16 Range/Units 16:15 21:32 03:56 WBC 8.9 (4.3-11.1) K/mcL Hgb 11.2 L 10.7 L 11.0 L (11.5-15.4) g/dL Hct 34.0 L 32.9 L 33.3 L (35.3-44.9) % Plt Count 197 (140-400) K/mcL Neutrophils # 4.6 (1.6-8.9) K/mcL 12/29/16 Range/Units 09:43 WBC (4.3-11.1) K/mcL Hgb 12.1 (11.5-15.4) g/dL Hct 36.2 (35.3-44.9) % Plt Count (140-400) K/mcL Neutrophils # (1.6-8.9) K/mcL BMP 12/29/16 03:56 Sodium 143 Potassium 3.4 L Chloride 111 H Carbon Dioxide 27 BUN 14 Creatinine 0.87 Glucose 114 H Calcium 7.8 L Liver Function 12/29/16 Range/Units 03:56 Total Bilirubin 0.3 (0.2-1.2) mg/dL AST 25 (5-34) Units/L ALT 22 (0-55) Units/L Alkaline Phosphatase 45 (38-126) Units/L Albumin 3.0 L (3.5-5.0) g/dL - ABG Interpretation ABG results: PT/INR, D-dimer PT 12.5 Seconds (9.4-12.1) H 12/26/16 10:16 - Impressions Impressions Pelvis Ultrasound 12/28/16 10:47 IMPRESSION: 1. Heterogeneous and thickened endometrium. In this patient age group, underlying endometrial mass cannot be excluded. 2. No ovarian lesion. Normal Doppler flow within the ovaries. D/ /28/2016 20:11:35 Jeffery Nobel MD / earnold Interpreting Provider: Jeffery Noble MD - VTE Documentation of Mechanical Device: Intermittent pneumatic compression device Consult Discharge Plan - Plan Referrals: Sage Albert DO [Primary Care Provider] - 01/02/17 9:30 am
[2016-12-29 16:29] LABS: Hematocrit 35.5 % (35.3-44.9); Hemoglobin 11.7 g/dL (11.5-15.4)
[2016-12-29] MEDS: Acetaminophen 325 MG TABLET PO PRN (21:20)
[2016-12-29] MEDS: Latanoprost 2.5 ML BOTTLE BOTH EYES SCH (21:20)
[2016-12-29 22:14] LABS: Hematocrit 35.4 % (35.3-44.9); Hemoglobin 11.6 g/dL (11.5-15.4)
[2016-12-30] MEDS: MetroNIDAZOLE 500 MG/100 ML 500 MG/100 ML BAG IVPB SCH ×2 (00:21→08:20)
[2016-12-30] MEDS: 0.9 % Sodium Chloride 1,000 ML IVC SCH (02:12)
[2016-12-30 04:02] LABS: Basophils # 0.1 K/mcL (0.0-0.2); Basophils % 0.9 %; Eosinophils # 0.4 K/mcL (0.0-0.6); Eosinophils % 4.7 %; Hemoglobin 10.7 g/dL (11.5-15.4); Immature Granulocytes % 0.2 % (0-4); Lymphocytes # 3.1 K/mcL (0.6-4.6); Lymphocytes % 32.7 %; Mean Corpuscular HGB Conc 33.4 g/dL (31.6-35.5); Mean Corpuscular Hemoglobin 31.3 pg (28.0-33.3); Mean Corpuscular Volume 93.6 fL (83.0-100.0); Mean Platelet Volume 10.3 fL (9.4-12.4); Monocytes # 0.8 K/mcL (0.0-1.3); Platelet Count 198 K/mcL (140-400); Red Blood Count 3.42 M/mcL (3.82-4.97); Red Cell Distribution Width 12.9 % (11.5-14.5); Segmented Neutrophils % 53.5 %
[2016-12-30 04:11] LABS: Alanine Aminotransferase 19 Units/L (0-55); Albumin/Globulin Ratio 1.2 (1.1-2.2); Alkaline Phosphatase 36 Units/L (38-126); Aspartate Amino Transferase 22 Units/L (5-34); BUN/Creatinine Ratio 15 (6-26); Bilirubin,Total 0.4 mg/dL (0.2-1.2); Blood Urea Nitrogen 13 mg/dL (7-20); Calcium 7.7 mg/dL (8.6-10.8); Carbon Dioxide 24 mEq/L (19-29); Chloride 111 mEq/L (98-109); Globulin 2.6 g/dL (2.4-3.5); Glucose 116 mg/dL (70-99); Osmolality,Calculated 295 (280-300); Potassium 3.4 mEq/L (3.5-4.5); Sodium 142 mEq/L (136-145); Total Protein 5.6 g/dL (6.0-8.3); eGFR For African Americans > 60 (> 60); eGFR For Non-African Americans > 60 (> 60)
[2016-12-30] MEDS: Pantoprazole 40 MG VIAL IVP SCH (08:20)
[2016-12-30 08:53] VITALS: BP 146/85
--- NOTE | 2016-12-30 11:45 | Discharge Summary ---
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 Qualified Code(s): E11.9 - Type 2 diabetes mellitus without complications (4) Hyperlipidemia Priority: Secondary Status: Chronic Qualifiers: Hyperlipidemia type: unspecified Qualified Code(s): E78.5 - Hyperlipidemia , unspecified (5) GI bleed Priority: Primary Status: Acute Qualifiers: GI bleed type/associated pathology: melena Qualified Code(s): K92.1 - Melena (6) Colitis Priority: Primary Status: Acute - Discharge Medications Prescriptions: Ciprofloxacin [Cipro] 500 mg PO BID #14 tablet metroNIDAZOLE [Flagyl] 500 mg PO TID #21 tablet Omeprazole [PriLOSEC] 40 mg PO DAILY #30 cap Home Medications: Aspirin 81 mg PO DAILY 12/26/16 [History] Latanoprost [Xalatan] 1 drop BOTH EYES HS 12/26/16 [History] Lisinopril/Hydrochlorothiazide [Zestoretic 10-12.5 mg Tablet] 1 tab PO DAILY 12/07 [History] Nabumetone 750 mg PO BID 12/26/16 [History] Simvastatin [Zocor] 40 mg PO HS 12/26/16 [History] metFORMIN [Glucophage] 500 mg PO BID 12/26/16 [History] Acetaminophen [Tylenol] 650 mg PO Q6HR PRN #0 tablet 12/30/16 [Rx] Ciprofloxacin [Cipro] 500 mg PO BID #14 tablet 12/30/16 [Rx] Omeprazole [PriLOSEC] 40 mg PO DAILY #30 cap 12/30/16 [Rx] metroNIDAZOLE [Flagyl] 500 mg PO TID #21 tablet 12/30/16 [Rx] Allergies/Adverse Reactions: Allergies ampicillin Adverse Reaction (Verified 12/26/16 09:04) Diarrhea Procedures/tests Complete & Pending: Procedures Performed prior 72 hours Category Date Time Status abdominal/pelvis CT with contrast [CT abd pelvis w iv Cat Scan 12/27/16 15:00 Completed and oral] [CT] Stat US pelvis extended [US] Routine Exams 12/28/16 10:47 Completed Date of admission: 12/26/16 12:30 Primary care physician: Sage Albert, Consults: 12/26/16 13:56 Consult to Surgery [CONS] Stat Consulting Provider: Surgery [facility] - [facility] Reason for Consult: rectal bleeding Call Completed: Yes 12/26/16 14:00 Consult to Physical Therapy [CONS] Routine Comment: Evaluate, develop and implement POC Reason for Consult: PT eval Consult to Biomedical Specialist [CONS] Routine Reason for SW Consult: Discharge planning 12/29/16 12:37 Consult to NETWORK/TELECOM ENGINEER [CONS] Routine Consulting Provider: HALFWAY HOUSE COUNSELOR Zena Reason for Consult: Heterogeneous uterine thickening Time Notified: 12:38 Call Completed: No Discharging clinician: Malou Donohue Anticipated date of discharge: 12/30/16 - Patient Status Disposition: Home, Self-Care Condition: Fair Overall status at discharge: patient is progressing back to baseline - Discharge Instructions Follow Up With: Sage Albert DO [Primary Care Provider] - 01/02/17 9:30 am Philip Chavez MD [Partnered Physician] - 01/03/17 9:30 am - Diet and Activity Activity: resume usual activities as tolerated Diet: advance to your usual diet (Use soft diet for a week) Interval History: Mrs. Diana Kirkland is a 76-year-old female presented with a painless lower rectal bleed with bright red blood along with multiple loose episodes. UA showed positive leukocytes but cultures were negative. Blood cultures were negativE. She is admitted for rectal bleed and UTI. Patient underwent colonoscopy by Dr. cartwright. She was noted to have descending colon and sigmoid colitis and she was started on Cipro and Flagyl and aggressively hydrated. Her symptoms have resolved her hemoglobin is as stable in the range of 12 and she plans to be discharged with antibiotics. Surgery raise a question of pelvic ultrasound which was done during this admission showed an uneven endometrium. She will need HALFWAY HOUSE COUNSELOR consultation as outpatient for this purpose. We did offer an inpatient evaluation however considering the fact that there she has is still going through the treatment for her colitis she prefers to do it once she is completed antibiotics and treatment for colitis. Patient questions were answered. At discharge her daughter who is a nurse was present and they are made aware of all the follow-up issues and they will follow up with their family doctor surgeon. Hospital course: Ms. Kirkland is a 76 year old female - Time Spent with Patient Total time spent providing and/or coordinating discharge services: Greater than 30 minutes - Constitutional Vitals: Temp Pulse Resp BP Pulse Ox 97.6 F 86 14 146/85 96 12/30/16 08:52 12/30/16 08:52 12/30/16 08:52 12/30/16 08:52 12/30/16 08:52 General appearance: Present: A&O X 3, pleasant, no acute distress, answers questions appropriately - Head Head exam: Present: atraumatic, normocephalic - Eye Eye exam: Present: PERRL, conjuntiva pink, sclera anicteric Pupils: Present: PERRL - Neck Neck exam general surgery: Present: supple, trachea midline. Absent: lymphadenopathy - Respiratory Respiratory exam: Present: CTAB. Absent: accessory muscle use, rales, rhonchi, wheezes - Cardiovascular Cardiovascular exam: Present: RRR, +S1, +S2. Absent: diastolic murmur, gallop, rubs, systolic murmur - GI/Abdominal GI/Abdominal exam: Present: normal bowel sounds, soft, no peritoneal signs. Absent: distended, tenderness - Extremities Exam Extremities exam: Present: warm, radial pulses palpable and symetrical. Absent : calf tenderness, cyanotic, pedal edema - Neurological Exam Neurological exam: Present: CN II-XII intact, oriented X3, no focal deficits. Absent: pronater drift, facial droop, speech deficit - Skin Skin exam: Present: dry, intact - VTE Documentation of Mechanical Device: Intermittent pneumatic compression device
== END 2016-12-30 14:12 | disposition home or self-care (01) ==
LOC: EMEROO 09:00 → 3BNU 09:00
PROVIDERS: ADMIT Family Medicine; ATTEND Registered Nurse
PROC: ENDOCBX (2016-12-27 15:00)